=== PATIENT | female | born 1980 | race Two or more races ===

== ENCOUNTER 2017-07-15 09:50 | Observation (INO) | payer SELFPAY | END 2017-07-15 12:35 | disposition home or self-care (01) | DRG 782 | LOC: LDRP 09:50 | PROVIDERS: ADMIT Specialist; ATTEND Specialist | DX: O26.853 Spotting complicating pregnancy, third trimester (principal); O48.0 Post-term pregnancy; Z3A.41 41 weeks gestation of pregnancy | CPT/HCPCS: 59025; 76815; 81002; G0378 ==

== ENCOUNTER 2017-07-18 05:04 | Inpatient (IN) | payer MEDICAID ==
[2017-07-18] VITALS (9 sets, daily range): BP systolic 122–142; BP diastolic 70–98
[~2017-07-18] VITALS: Ht 160 cm; Wt 79.4 kg
[2017-07-18] MEDS ORDERED: LACTATED RINGER'S 1,000 ML IV SCH ×2 (05:26)
[2017-07-18] MEDS ORDERED: METHYLERGONOVINE MALEATE 0.2 MG/ML AMP IM ONE (05:33)
[2017-07-18] MEDS ORDERED: LIDOCAINE 2%HCL (LOCAL ANESTH.) INJ 20ML MDV ONE (05:34)
[2017-07-18] MEDS ORDERED: LACT. RINGERS/OXYTOCIN 20UNITS 1,000 ML IV ONE (05:35)
[2017-07-18] MEDS ORDERED: OXYTOCIN 10UNIT/ML 1ML VIAL ONE (05:35)
[2017-07-18 05:41] LABS: Basophils # (auto) 0 uL; Basophils % (auto) 0.5 % (0.0-2.0); Eosinophils # (auto) 0 uL; Eosinophils % (auto) 0.6 % (0.0-7.0); Hemoglobin 13.9 g/dL (12.2-16.2); Lymphocytes # (auto) 3.1 uL; Lymphocytes % (auto) 38.9 % (10.0-50.0); Mean Corpuscular Hemoglobin 29.9 pg (28.0-32.0); Mean Corpuscular Hgb Conc. 33.1 g/dL (32.0-36.0); Mean Corpuscular Volume 90.1 fL (80.0-100.0); Mean Platelet Volume 10.4 fL (6.9-10.8); Monocytes # (auto) 0.6 uL; Neutrophils # (auto) 4.1 uL; Nucleated Red Blood Cells % 0.2 %; Platelet Count (auto) 146 10^3/uL (140-450); Red Cell Distribution Width 14.2 % (11.8-14.3); White Blood Cell 7.8 10^3/uL (4.4-10.8)
[2017-07-18] MEDS ORDERED: DERMOPLAST 60ML BOTTLE TOP ONE (05:49)
[2017-07-18] MEDS ORDERED: PHISODERM TOP SOLN 240ML BTL TOP ONE (05:49)
[2017-07-18] MEDS ORDERED: WITCH HAZEL-GLYCERIN PAD TOP ONE (05:49)
[2017-07-18 06:07] LABS: Albumin 2.6 g/dL (3.4-5.0); Bilirubin, Total 0.3 mg/dL (0.2-1.0); Total Protein 6.9 g/dL (6.4-8.2)
[2017-07-18 06:32] LABS: Urine Bilirubin Negative (Negative); Urine Blood Negative /uL (Negative); Urine Color Yellow (Yellow); Urine Glucose Normal (Normal); Urine Ketone Negative (Negative); Urine Mucus FEW (None Seen); Urine Nitrite Negative (Negative); Urine RBC 1 /hpf (0 - 4); Urine Urobilinogen Normal (Negative); Urine pH 6.5 (5.0-8.0)
[2017-07-18] MEDS ORDERED: ACETAMINOPHEN 325 MG TAB PO PRN (07:15)
[2017-07-18] MEDS: IBUPROFEN 600 MG TAB PO PRN ×3 (07:33→18:35)
[2017-07-18] MEDS ORDERED: PREN-96 PO (08:09)
[2017-07-18 08:14] LABS: INR 0.84 (0.9-1.15); Partial Thromboplastin Time 26.3 sec (22.64-33.71); Prothrombin Time 9.1 sec (9.37-12.3)
[2017-07-18] MEDS ORDERED: DERMOPLAST 60ML BOTTLE TOP PRN (08:15)
[2017-07-18] MEDS ORDERED: WITCH HAZEL-GLYCERIN PAD TOP PRN (08:15)
[2017-07-18] MEDS ORDERED: PHISODERM TOP SOLN 240ML BTL TOP PRN (08:15)
[2017-07-19 00:11] VITALS: BP 133/78
[2017-07-19 04:27] VITALS: BP 135/83
[2017-07-19] MEDS: IBUPROFEN 600 MG TAB PO PRN (06:44)
[2017-07-19 08:00] VITALS: BP 120/80
== END 2017-07-19 11:00 | disposition home or self-care (01) | DRG 560 ==
LOC: LDRP 05:04 → OBSVTOIN 05:04
PROVIDERS: ADMIT Obstetrics & Gynecology; ATTEND Obstetrics & Gynecology
PROC: 10E0XZZ Delivery of Products of Conception, External Approach (ICD-10-PCS; principal; 2017-07-18)
DX: O32.1XX0 Maternal care for breech presentation, not applicable or unspecified (principal); O69.0XX0 Labor and delivery complicated by prolapse of cord, not applicable or unspecified; O77.0 Labor and delivery complicated by meconium in amniotic fluid; O62.3 Precipitate labor; Z37.0 Single live birth; Z3A.38 38 weeks gestation of pregnancy
CPT/HCPCS: 36415; 59025; 59409; 76815; 80053; 81001; 84550; 85025; 85384; 85610; 85730; 86850; 86900; 86901; G0378; J2590